=== PATIENT | male | born 1940 | race Caucasian/White ===

== ENCOUNTER → 2022-06-15 | Outpatient (CLI) | payer MEDICARE ==
[~2022-06-15] MED LIST: ASPI81TA87 PO; CEFU500T41 PO; METF-444 PO; METO25 PO; SIMV-261 PO; TNFMISC
== END | disposition home or self-care (01) ==
LOC: RADPV 10:00
PROVIDERS: ATTEND Internal Medicine Cardiovascular Disease
DX: I08.0 Rheumatic disorders of both mitral and aortic valves (principal); I25.5 Ischemic cardiomyopathy
CPT/HCPCS: 93306